=== PATIENT | male | born 1970 | race Two or more races ===

== ENCOUNTER 2024-11-02 10:52 | Emergency (ER) | payer MEDICAID ==
[~2024-11-02] VITALS: Ht 188 cm; Wt 135.4 kg
[~2024-11-02 10:52] MED LIST: BENA5TAB9; CYCL-839; GEMF-66; HYDR-2595; INSLANTI; LISI-283; LISI10TA34; NIAC500C3; NOVOLOG; ROPI0.5T26; TRAM50TA2; WARF-115
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
[2024-11-02] MEDS: ONDANSETRON HCL 4 MG/2 ML VIAL IM ONE (12:11)
[2024-11-02 12:12] VITALS: PULSE 89; RESP 16; O2SAT 100
[2024-11-02] MEDS: HYDROmorphone HCL 2 MG/ML VL/or syr IM ONE (12:12)
[2024-11-02 12:51] LABS: INR 1.49 (0.9-1.15); Partial Thromboplastin Time 32.8 SEC (24.5-34.5); Prothrombin Time 15.2 sec (9.3-11.8)
--- NOTE | 2024-11-02 14:08 | DVH ---
Left lower extremity venous duplex Clinical History: pain Comparison: None Findings: Duplex Doppler evaluation of the deep venous system of the left lower extremity from the common femor al vein to the popliteal vein including color Doppler and spectral/pulsed waveform analysis was perfo rmed. The common femoral vein demonstrates appropriate compressibility and waveform variability. There is compressibility/patency of the great saphenous vein at the proximal thigh. The femoral vein demonstrates appropriate compressibility and waveform variability. The deep femoral vein demonstrates appropriate compressibility and waveform variability. Residual thrombus in mdi superficial femoral vein. The popliteal vein demonstrates appropriate compr essibility and waveform variability. There is normal compressibility at the tibioperoneal trunk. Impression: Residual thrombus in mid superficial femoral vein. If clinical concern/symptoms persist or worsen, short-interval follow-up study is suggested.
[2024-11-02 17:06] VITALS: BP 110/71; PULSE 75; RESP 16; TEMP 97.7; O2SAT 97
--- NOTE | 2024-11-03 09:00 | ECG ---
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
== END 2024-11-02 19:22 | disposition home or self-care (01) ==
LOC: ER 10:52
DX: M79.605 Pain in left leg (principal); M79.89 Other specified soft tissue disorders; M62.838 Other muscle spasm; I10 Essential (primary) hypertension; E11.9 Type 2 diabetes mellitus without complications; E78.5 Hyperlipidemia, unspecified; F17.210 Nicotine dependence, cigarettes, uncomplicated
CPT/HCPCS: 36415; 85610; 85730; 93005; 93971; 96372; 99285; J1171; J2405